=== PATIENT | female | born 1950 | race Caucasian/White ===

== ENCOUNTER → 2024-06-23 14:06 | Outpatient (REF) | payer OTHER, SELFPAY | LOC: RAD 14:06 | PROVIDERS: ATTENDING PHYSICIAN Family Medicine | DX: E04.2 Nontoxic multinodular goiter (principal) | CPT/HCPCS: 76536 ==

== ENCOUNTER 2025-03-24 19:44 | Emergency (ER) | payer OTHER, SELFPAY ==
[2025-03-24 19:48] VITALS: BP 187/116
[2025-03-24 23:26] VITALS: BP 153/86
--- NOTE | 2025-03-24 23:27 | ED.GENMED ---
History of Present Illness
General
Chief Complaint: Allergic Reaction
Source: patient and spouse
Exam Limitations: none
Time Seen by Provider: 03/24/25 22:37
Nursing documentation reviewed up to this point in time: agreed with
History of Present Illness
History of Present Illness:
The patient is a 74-year-old female with a past medical history significant for hypertension, hyperlipidemia, gastroesophageal reflux disease, left breast cancer, and impaired fasting glucose. She presented with an acute allergic reaction that began
approximately one hour prior to arrival. The episode started after consuming raw carrots, with the initial symptoms including itchy eyes, throat swelling, and throat soreness, followed by coughing. The patient reports a similar reaction
approximately 15-20 years ago after eating a raw vegetable salad and experiences throat irritation and hoarseness with cantaloupe and watermelon, although these are not present in the household. She had consumed carrots the previous night without
any reactions. The patient took Claritin with slight relief. Upon presentation, she noted persistent throat soreness and eyelid swelling.
Past History
Past History
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
ED Past Surgical History: Appendectomy, Gynecological (Bilateral mastectomy 2021, hysterectomy) and Tonsilectomy
Social History
Tobacco: Non-smoker
Alcohol: None
Drug: None
Personal:
Employment: Retired
Family History
Family History: Other (Noncontributory)
Phy Exam
Physical Exam
Physical Exam:
GENERAL: 74-year-old woman appears her stated age, awake and alert, pleasant, appears mildly uncomfortable, easily communicative.
EYE: pupils equal and reactive. anicteric. Moderate bilateral eyelid angioedema. No chemosis. No tearing.
NECK: Supple, nontender, no meningismus, no significant adenopathy.
ENT: Very mild uvular edema is noted, oral mucosa is moist. TM clear b/l, nares patent. No rhinorrhea. No stridor nor cough appreciated.
CARDIAC: Regular rate and rhythm. no murmur.
LUNGS: Clear breath sounds bilaterally, no acute respiratory distress, no wheezes/rales/rhonchi
ABDOMEN: Rotund, soft, nondistended, without focal tenderness, no r/g, no cvat. normoactive BS.
NEUROLOGICAL: Alert and oriented x3, no focal neuro deficits. Gait is steady.
SKIN: Warm and dry, normal color, skin intact. No rash. No urticaria. Angioedema of eyelids bilaterally noted
MUSCULOSKELETAL: No C/C/E. peripheral pulses are full and equal b/l. No palpable tenderness.
PSYCH: Normal and appropriate interaction.
Course
Orders/Labs/Results
Orders:
Orders
03/24/25 23:24
Cardiac Monitoring- Treatment ONCE
Complete Blood Count/With Diff Urgent
0.9% Sodium Chloride 500 ml [Nss] 500 ml IV BOLUS
Dexamethasone Sod Phosphate [Decadron] 10 mg IV NOW STA
Diphenhydramine [Benadryl] 25 mg IV NOW STA
Famotidine [Pepcid] 20 mg IV NOW STA
03/24/25 23:30
EPINEPHrine PF [Adrenalin] 0.3 mg IM NOW STA
03/25/25 00:28
Comprehensive Metabolic Panel Urgent
Comment: REDRAW
03/25/25 02:16
Betamethasone Valerate [Betamethasone Valerate 0.1% Cream] See Dose Instructions TOPICAL NOW STA
Abnormal Lab Results
03/25/25 03/25/25
00:02 00:28
WBC 11.7 H 10^3/uL
(4.8-10.8)
Abs Immat Gran (auto) 0.1 H 10^3/uL
(0-0.05)
Absolute Neuts (auto) 7.1 H 10^3/uL
(1.4-6.5)
Absolute Monos (auto) 0.7 H 10^3/uL
(0.1-0.6)
Sodium 132 L mmol/L
(135-145)
BUN 27 H mg/dl
(7-17)
03/25/25 00:02
03/25/25 00:28
Vital Signs
Blood pressure: 153/86
Initial and Last Documented VS:
Initial Vital Signs
Temp Pulse Resp BP Pulse Ox
98.5 F 82 18 187/116 97
03/24/25 19:48 03/24/25 19:48 03/24/25 19:48 03/24/25 19:48 03/24/25 19:48
Last Documented Vital Signs
Temp Pulse Resp BP Pulse Ox
97.7 F 79 18 128/74 95
03/25/25 02:26 03/25/25 02:26 03/25/25 02:26 03/25/25 02:26 03/25/25 02:26
MDM/Problems Addressed
Differential Diagnosis Includes:
The Differential Diagnosis includes, in no particular order and is not limited to:
1. Allergic Reaction to Carrots
2. Oral Allergy Syndrome
3. Anaphylaxis
4. Food Sensitivity
5. Respiratory Distress
6. Angioedema
7. Gastroesophageal Reflux Disease-related Upper Respiratory Symptoms
8. Viral Pharyngitis
9. Anxiety-Induced Dyspnea
10. Acute Rhinitis
MDM/Problems Addressed:
Acute Problems:
- Acute allergic reaction
Chronic Problems:
- Hypertension
- Hyperlipidemia
- Gastroesophageal Reflux Disease
- Breast cancer (Status post bilateral mastectomies)
- Impaired fasting glucose
Patient is noted to have moderate edema of upper eyelids as well as mild edema of uvula but there is no edema of the tongue or lips.
She is chronically maintained on lisinopril but current history and exam is more concerning for acute allergic reaction/anaphylaxis and not related to NIXON inhibitor angioedema.
Symptoms began with itching of her eyes, again not consistent with NIXON inhibitor related angioedema, but more consistent with acute allergic reaction.
Plan:
- Initiate IV access and administer intravenous Benadryl and Pepcid (an H2 john). Along with IV decadron. IVF
- Administer a subcutaneous dose of epinephrine to address throat swelling and prevent further allergic reaction escalation.
- Administer Decadron, a corticosteroid, to mitigate potential re-blooming of the allergic reaction.
- Delay any fasting blood work until after steroid treatment due to potential elevation in blood glucose levels. Patient was scheduled for routine fasting labs tomorrow. With history of impaired fasting glucose, encouraged she hold off on fasting
blood work until after a course of steroids have completed.
- Provide cool compresses for symptomatic relief of eye swelling.
- Consider prescribing a course of prednisone and possibly a topical steroid cream for local application.
- Advise the patient to avoid carrots and similar foods in the future to prevent recurrence.
- Consider outpatient follow-up with structural iron worker for formal allergy testing.
- Will plan for prescription for EpiPen for as needed use if acute allergic reaction/anaphylaxis occur in the future.
*Pulse Oximetry
SaO2: 95
Oxygen Mode of Delivery: Room air
Patient hypoxic: no
*Network Director Interpretation
Rate: normal
Interpretation: normal
Rhythm: sinus
*Critical Care Note
Total Time (30-74mins, 75-104mins- exclusive of procedures): Not Applicable
Update Note
Update Note:
01:40
Patient feeling improved.
Mild improvement in upper eyelid angioedema. Moderate improvement in uvular edema.
She continues to have no difficulty swallowing, no difficulty with phonation, no cough no shortness of breath.
Will plan for discharge to home with recommendation she continue once daily Claritin. Will add a tapering course of prednisone, along with short course of Pepcid and topical steroid to bilateral upper eyelid edema.
Will prescribe EpiPen to have on hand for as needed anaphylactic reaction in the future.
Prompt follow-up with PCP for recheck.
Return precautions discussed.
Consider outpatient structural iron worker evaluation.
ED Attending Note
-
Portions of this chart may have been created with voice recognition software.� Occasional wrong word or��sound alike� substitutions may have occurred due to the inherent limitations of voice recognition software.
Discharge Plan
Departure
Patient Disposition: Home (Routine Discharge)
Date of Disposition: 03/25/25
Time of Disposition: 01:50
Patient with high blood pressure during this ER visit?: No
Condition: Good
Discharge Problem:
Acute anaphylaxis, Acute allergic reaction
Instructions: Anaphylaxis (DC)
Prescriptions:
New
prednisone 10 mg Tablet
See Rx Instructions .ROUTE .COMPLEX Qty: 30 0RF
Rx Instructions:
Take By Mouth:
40 mg daily x3 days, 30 mg daily x3 days,
20 mg daily x3 days, 10 mg daily x3 days.
epinephrine [EpiPen] 0.3 mg/0.3 mL Auto-Injector
0.3 mg IM .STAT PRN (Reason: anaphylaxis) Qty: 2 0RF
famotidine [Pepcid] 20 mg tablet
20 mg PO BID Qty: 14 0RF
betamethasone valerate 0.1 % cream
1 applic topical BID PRN (Reason: allergic reaction) Qty: 15 0RF
Referrals:
Josue Kuo MD [[facility]] - Call in 1-3 days for appt
Susana Welch DO [Family Provider, Family Practice] - Call in 1-3 days for appt
Activity Restrictions/Additional Instructions:
Continue Claritin 10 mg daily.
Avoid raw carrots.
Interventions
Interventions:
*Risk Screen - Suicide Last Done: 03/24/25 19:48
*General Assessment Last Done: 03/24/25 21:54
*Neglect/Abuse Screening Last Done: 03/24/25 21:54
*ED- Fall Risk Assessment Last Done: 03/24/25 21:54
*ED COVID-19 Vaccine History Last Done: 03/24/25 21:54
*ED Influenza Vaccine History Last Done: 03/24/25 21:54
*Nursing Disposition Last Done: 03/25/25 02:26
ED- Cardiac Assessment Last Done: 03/24/25 21:54
ED- Pulmonary Assessment Last Done: 03/24/25 21:54
ED-Skin Assessment Last Done: 03/24/25 21:54
Discharge Date and Time
Discharge Date/Time: 03/25/25 02:30
Print Language: CHILEAN
[2025-03-24] MEDS: ADRENALIN 0.3 MG IM (23:57)
[2025-03-25] MEDS: PEPCID 20 MG IV (00:04)
[2025-03-25] MEDS: DECADRON 10 MG IV (00:04)
[2025-03-25] MEDS: BENADRYL 25 MG IV (00:04)
[2025-03-25] MEDS: NSS 500 IV (00:17)
[2025-03-25 00:21] LABS: Hematocrit 42.8 % (37.0-47.0); Hemoglobin 14.4 g/dL (12.0-16.0); Mean Corp Hgb Conc. 33.6 g/dL (33.0-37.0); Mean Corpuscular Volume 90.7 fL (81.0-99.0); Nucleated Red Blood Cells % 0 %; Platelet Count 273 10^3/uL (130-400); Red Cell Dist. Width 12.6 % (11.5-14.5)
[2025-03-25 00:31] VITALS: BP 139/76
[2025-03-25 00:53] LABS: ALT (SGPT) 17 U/L (0-35); AST (SGOT) 19 U/L (14-36); Albumin 4.2 g/dl (3.5-5.0); Alkaline Phosphatase 71 U/L (38-126); Blood Urea Nitrogen 27 mg/dl (7-17); Calcium 10.2 mg/dl (8.4-10.2); Carbon Dioxide 27 mmol/L (22-30); Chloride 99 mmol/L (98-107); Glucose 89 mg/dl (70-99); Potassium 4.9 mmol/L (3.5-5.1); Sodium 132 mmol/L (135-145); Total Protein 6.5 g/dl (6.3-8.2); eGFR > 60.00
[2025-03-25 01:00] VITALS: BP 130/68
[2025-03-25 02:26] VITALS: BP 128/74
== END 2025-03-25 02:30 | disposition home or self-care (01) ==
LOC: EMR 19:44
PROVIDERS: EMERGENCY PHYSICIAN Emergency Medicine; FAMILY PHYSICIAN Family Medicine
DX: T78.2XXA Anaphylactic shock, unspecified, initial encounter (principal); T78.40XA Allergy, unspecified, initial encounter; X58.XXXA Exposure to other specified factors, initial encounter; I10 Essential (primary) hypertension; E78.00 Pure hypercholesterolemia, unspecified; K21.9 Gastro-esophageal reflux disease without esophagitis; Z85.3 Personal history of malignant neoplasm of breast; Z90.13 Acquired absence of bilateral breasts and nipples; Z90.710 Acquired absence of both cervix and uterus
CPT/HCPCS: 99284; 96374; 96375 ×2; 96361 ×2; 96372; 80053; 85025